=== PATIENT | female | born 2000 | race Caucasian/White ===

== ENCOUNTER 2022-05-13 20:57 | Emergency (ER) | payer MEDICAID ==
[~2022-05-13] VITALS: Ht 170.1 cm; Wt 60.1 kg
[~2022-05-13 20:57] MED LIST: ONDAN4ODT PO
--- NOTE | 2022-05-13 21:36 | ED Cough/URI ---
General Chief Complaint: COVID19 Suspect/Confirmed Stated Complaint: SOB, COUGH, SORE THROAT Nursing Triage Note: PT ARRIVAL TO ER WITH COMPLAINT OF COVID SYMTPOMS SINCE THIS AM. REYES, FEVER, CHILLS, SOA AT REST, AND FATIGUE. SYMPTOMS STARTED THIS MORNING. PT IS COVID VACCINATED X1 WITH THE J&J. Source: patient Exam Limitations: no limitations History of Present Illness Date Seen by Provider: May 13, 2022 Time Seen by Provider: 21:26 Allergies and Home Medications Allergies Coded Allergies: No Known Drug Allergies (Unverified , 05/13/22) Past Sttmfee-Kdmbsq-Pumbpj Hx Patient Social History Tobacco Use?: No Use of E-Cig and/or Vaping dev: No Substance use?: No Alcohol Use?: Yes Alcohol type: Beer, Hard Liquor, Wine Alcohol Frequency: Couple times a week Pt feels they are or have been: No Immunizations Up To Date Influenza Vaccine Up-to-Date: No; Not Current First/Initial COVID19 Vaccinat: 11/12 COVID19 Vaccine Automatic Screwmaker: J&J Physical Exam Vital Signs - First Documented 05/13/22 21:09 Temp 38.3 Pulse 126 Resp 18 B/P (MAP) 104/70 (81) Pulse Ox 97 O2 Delivery Room Air Capillary Refill : Less Than 3 Seconds Height: '" Weight: lbs. oz. kg; 20.00 BMI Method: Progress/Results/Core Measures Suspected Sepsis SIRS Temperature: Pulse: 126 Respiratory Rate: 18 Laboratory Tests 05/13/22 22:02: White Blood Count 14.4H Blood Pressure 104 /70 Mean: 81 Laboratory Tests 05/13/22 22:02: Creatinine 0.87, Platelet Count 191, Total Bilirubin 2.4H Results/Orders Lab Results Laboratory Tests Test 05/13/22 21:15 05/13/22 22:02 Range/Units Influenza Type A (RT-PCR) Not Detected Not Detecte Influenza Type B (RT-PCR) Not Detected Not Detecte SARS-CoV-2 RNA (RT-PCR) Not Detected Not Detecte Group A Streptococcus Screen NEGATIVE NEGATIVE White Blood Count 14.4 H 4.3-11.0 10^3/uL Red Blood Count 4.39 3.80-5.11 10^6/uL Hemoglobin 13.2 11.5-16.0 g/dL Hematocrit 38 35-52 % Mean Corpuscular Volume 86 80-99 fL Mean Corpuscular Hemoglobin 30 25-34 pg Mean Corpuscular Hemoglobin Concent 35 32-36 g/dL Red Cell Distribution Width 11.7 10.0-14.5 % Platelet Count 191 130-400 10^3/uL Mean Platelet Volume 10.1 9.0-12.2 fL Immature Granulocyte % (Auto) 0 % Neutrophils (%) (Auto) 83 H 42-75 % Lymphocytes (%) (Auto) 8 L 12-44 % Monocytes (%) (Auto) 8 0-12 % Eosinophils (%) (Auto) 0 0-10 % Basophils (%) (Auto) 0 0-10 % Neutrophils # (Auto) 12.0 H 1.8-7.8 10^3/uL Lymphocytes # (Auto) 1.2 1.0-4.0 10^3/uL Monocytes # (Auto) 1.2 H 0.0-1.0 10^3/uL Eosinophils # (Auto) 0.0 0.0-0.3 10^3/uL Basophils # (Auto) 0.0 0.0-0.1 10^3/uL Immature Granulocyte # (Auto) 0.1 0.0-0.1 10^3/uL Neutrophils % (Manual) 82 % Lymphocytes % (Manual) 10 % Monocytes % (Manual) 8 % Blood Morphology Comment NORMAL Sodium Level 137 135-145 MMOL/L Potassium Level 3.5 L 3.6-5.0 MMOL/L Chloride Level 103 98-107 MMOL/L Carbon Dioxide Level 21 21-32 MMOL/L Anion Gap 13 5-14 MMOL/L Blood Urea Nitrogen 10 7-18 MG/DL Creatinine 0.87 0.60-1.30 MG/DL Estimat Glomerular Filtration Rate 98 BUN/Creatinine Ratio 11 Glucose Level 103 70-105 MG/DL Calcium Level 9.2 8.5-10.1 MG/DL Corrected Calcium 9.0 8.5-10.1 MG/DL Total Bilirubin 2.4 H 0.1-1.0 MG/DL Aspartate Amino Transf (AST/SGOT) 16 5-34 U/L Alanine Aminotransferase (ALT/SGPT) 12 0-55 U/L Alkaline Phosphatase 57 40-136 U/L Total Protein 7.3 6.4-8.2 GM/DL Albumin 4.3 3.2-4.5 GM/DL Monoscreen NEGATIVE NEGATIVE My Orders Orders - MEENA FRAZIER [employer]ICE PRESIDENT [employer] Urine Bedside (05/13/22 21:02) Ed Iv/Invasive Line Start (05/13/22 21:51) Ketorolac Injection (Toradol Injection) (05/13/22 22:00) Ns Iv 1000 Ml (Sodium Chloride 0.9%) (05/13/22 22:00) Rapid Strep A Screen (05/13/22 22:00) Cbc With Automated Diff (05/13/22 22:37) Comprehensive Metabolic Panel (05/13/22 22:37) Monotest (05/13/22 22:37) Acetaminophen Tablet (Tylenol Tablet) (05/13/22 22:45) Manual Differential (05/13/22 22:02) Saline Nasal [place] ([place] Nasal [place]) (05/13/22 23:00) Medications Given in ED Current Medications Medications Dose Ordered Sig/Zoe Route Start Time Stop Time Status Last Admin Dose Admin Acetaminophen 1,000 mg ONCE ONCE PO 05/13/22 22:45 05/13/22 22:46 DC 05/13/22 22:54 1,000 MG Ketorolac Tromethamine 30 mg ONCE ONCE IVP 05/13/22 22:00 05/13/22 22:01 DC 05/13/22 22:04 30 MG Sodium Chloride 1,000 ml @ 999 mls/hr Q1H ONCE IV 05/13/22 22:00 05/13/22 23:05 DC 05/13/22 22:04 999 MLS/HR Vital Signs/I&O 05/13/22 21:09 Temp 38.3 Pulse 126 Resp 18 B/P (MAP) 104/70 (81) Pulse Ox 97 O2 Delivery Room Air Capillary Refill : Less Than 3 Seconds Blood Pressure Mean: 81 Departure Impression Primary Impression: Acute tonsillitis Disposition: 01 HOME, SELF-CARE Condition: Improved Departure-Patient Inst. Decision time for Depature: 23:08 Patient Instructions: Sore Throat, Adult ED Add. Discharge Instructions: Plan: 1. Gargle with warm salt water 2-3 times per day. 2. Take antibiotics twice a day as directed and complete full course even if you start feeling better. 3. Follow up with your doctor if your symptoms persist despite taking antibiotics. 4. May take Ibuprofen 600mg every 6 hours or 800mg every 8 hours for throat pain. Do not take at this dose for more than a couple days. 5. Return to ER for any new, concerning, or worsening symptoms. All discharge instructions reviewed with patient and/or family. Voiced understanding. Scripts Amoxicillin (Amoxicillin) 500 Mg Capsule 500 MG PO BID for 10 Days, #20 CAP 0 Refills Prov: MEENA FRAZIER VICE PRESIDENT [employer] 05/13/22 MEENA FRAZIER [employer]ICE PRESIDENT [employer] May 13, 2022 21:36
[2022-05-13] MEDS ORDERED: NS IV 1000 ML 1,000 ML IV ONE (22:00)
[2022-05-13] MEDS ORDERED: KETOROLAC 30 MG/ML VIAL IVP ONE (22:00)
[2022-05-13 22:43] LABS: ALBUMIN 4.3 GM/DL (3.2-4.5); BASOPHILS % (AUTO) 0 % (0-10); EOSINOPHILS % (AUTO) 0 % (0-10); HEMATOCRIT 38 % (35-52); HEMOGLOBIN 13.2 g/dL (11.5-16.0); LYMPHOCYTES # (AUTO) 1.2 10^3/uL (1.0-4.0); LYMPHOCYTES % (AUTO) 8 % (12-44); MEAN CORPUSCULAR HEMOGLOBIN 30 pg (25-34); MEAN CORPUSCULAR HGB CONC 35 g/dL (32-36); MEAN CORPUSCULAR VOLUME 86 fL (80-99); MEAN PLATELET VOLUME 10.1 fL (9.0-12.2); MONOCYTES # (AUTO) 1.2 10^3/uL (0.0-1.0); MONOCYTES % (AUTO) 8 % (0-12); NEUTROPHILS % (AUTO) 83 % (42-75); PLATELET COUNT 191 10^3/uL (130-400); WHITE BLOOD COUNT 14.4 10^3/uL (4.3-11.0)
[2022-05-13 22:44] LABS: POTASSIUM 3.5 MMOL/L (3.6-5.0)
[2022-05-13 22:45] LABS: CALCIUM 9.2 MG/DL (8.5-10.1)
[2022-05-13] MEDS ORDERED: ACETAMINOPHEN 500 MG TAB (TYLENOL) PO ONE (22:45)
[2022-05-13 22:46] LABS: TOTAL PROTEIN 7.3 GM/DL (6.4-8.2)
[2022-05-13 22:48] LABS: BILIRUBIN,TOTAL 2.4 MG/DL (0.1-1.0)
[2022-05-13 22:50] LABS: CREATININE SERUM 0.87 MG/DL (0.60-1.30)
[2022-05-13] MEDS ORDERED: SALINE NASAL SPRAY (OCEAN) 45 ML BTL ONE (23:00)
[2022-05-13 23:01] LABS: LYMPHOCYTES % (MANUAL) 10 %; MONOCYTES % (MANUAL) 8 %; NEUTROPHILS % (MANUAL) 82 %; RBC MORPH NORMAL
[2022-05-13] MEDS ORDERED: AMOX500C2 PO (23:12)
[2022-05-13 23:22] VITALS: BP 108/83
== END 2022-05-13 23:29 | disposition home or self-care (01) ==
LOC: ER 21:01
DX: J03.90 Acute tonsillitis, unspecified (principal); Z20.822 Contact with and (suspected) exposure to COVID-19; Z28.311 Partially vaccinated for COVID-19
CPT/HCPCS: 36415; 80053; 85007; 85025; 85027; 86308; 87430; 87636; 96374; 96375

== ENCOUNTER 2022-08-19 12:39 | Emergency (ER) | payer MEDICAID ==
[~2022-08-19] VITALS: Ht 170 cm; Wt 64.2 kg
[~2022-08-19 12:39] MED LIST changes: +AMOX500C2 PO
--- NOTE | 2022-08-19 13:13 | ED EENT ---
History of Present Illness General Chief Complaint: Oral/Throat Problems Stated Complaint: THROAT AND EAR PAIN Nursing Triage Note: PT COMPLAINS OF BEING SICK X1 WEEK WITH SEVERE RIGHT SIDED THROAT AND EAR PAIN. PT STATES THERE IS A POCKET IN HER THROAT THAT IS DRAINING. PT WENT TO [facility]. NEG FOR STREP, COVID, AND FLU ET WAS TOLD TO GO HOME AND TAKE IBUPROFEN. Source: patient Exam Limitations: no limitations History of Present Illness Date Seen by Provider: Aug 19, 2022 Time Seen by Provider: 13:00 Initial Comments 22yo female to the ER with a complaint of throat pain for about a week. Saw a provider at [facility] and was told pharyngitis - rapid strep neg. Taking 800mg Ibuprofen without relief of symptoms. Concerned for possible "tonsil stone" to right tonsil and irriation and soreness. subjective fever 2 days ago. Gargling with warm salt water without relief. No cough/URI symptoms. was told she also has fluid behind her right ear. Not taking any decongestants. No n/v/d. no urinary symptoms. Timing/Duration: gradual, last week Severity: moderate Location: throat Prearrival Treatment: over the counter meds (ibuprofen) Associated Symptoms: No cough; sore throat, other (fever 2 days ago) Allergies and Home Medications Allergies Coded Allergies: No Known Drug Allergies (Unverified , 05/13/22) Patient Home Medication List Home Medication List Reviewed: Yes No Active Prescriptions or Reported Meds Review of Systems Review of Systems Constitutional: see HPI Eyes: No Symptoms Reported Ears: Other (congestion) Nose: no symptoms reported Throat: pain, swelling, other (tonsil stone right - right sided pain) Respiratory: no symptoms reported Cardiovascular: no symptoms reported Gastrointestinal: no symptoms reported Neurological: No Symptoms Reported All Other Systems Reviewed Negative Unless Noted: Yes Past Atnqnpr-Vpcwsi-Ajliny Hx Patient Social History Tobacco Use?: No Substance use?: No Alcohol Use?: Yes Alcohol Frequency: Once in a while Immunizations Up To Date First/Initial COVID19 Vaccinat: UNKNOWN COVID19 Vaccine Pile Driver Operator Helper: SARAHY Physical Exam Vital Signs Vital Signs - First Documented 08/19/22 12:50 Temp 36.9 Pulse 92 Resp 16 B/P (MAP) 127/85 (99) Pulse Ox 99 O2 Delivery Room Air Height, Weight, BMI Height: '" Weight: lbs. oz. kg; 22.00 BMI Method:Stated General Appearance: WD/WN, no apparent distress Eyes: bilateral eye normal inspection, bilateral eye PERRL, bilateral eye EOMI Ears: bilateral ear auricle normal, bilateral ear canal normal, bilateral ear TM dull, bilateral ear other (with effusion) Mouth/Throat: pharynx swelling, pharynx tenderness, tonsillar exudate, other (petechial rash on the palate right greater than left) Neck: full range of motion Cardiovascular: regular rate, rhythm; No no murmur Respiratory: lungs clear, normal breath sounds, no respiratory distress, no accessory muscle use Gastrointestinal: soft Neurologic/Psychiatric: alert, normal mood/affect, oriented x 3 Skin: normal color, warm/dry Progress/Results/Core Measures Results/Orders My Orders Orders - YUDITH VÁZQUEZ MD Rapid Strep A Screen (08/19/22 13:14) Dexamethasone Oral Soln (Ed) (Decadron I (08/19/22 13:17) Vital Signs/I&O 08/19/22 12:50 Temp 36.9 Pulse 92 Resp 16 B/P (MAP) 127/85 (99) Pulse Ox 99 O2 Delivery Room Air Blood Pressure Mean: 99 Progress Progress Note : Time: 13:14 Progress Note Call to [facility] clinic, strep culture prelim negative per nurse at the clinic. Offered the patient 2 choices, retest and treat or just treat - either with 1 shot of penicillin or an oral course. She elected the shot. Also will give a dose of decadron to help with the swelling and pain. She is not sexually active or on control. She does states she has a history of yeast infections with antibiotics - will give a script for diflucan. Patient advised to contine to gargle 2-3 times a day, Counselled on ibuprofen dosing. She could use a water pick to try and dislodge the stone. Return precautions provided; I did let her know the more she "messes with" the area on her tonsil the high the risk of creating an abcess. Departure Impression Primary Impression: Pharyngitis Qualified Codes: J02.9 - Acute pharyngitis, unspecified Disposition: HOME, SELF-CARE Condition: Stable Departure-Patient Inst. Decision time for Depature: 13:24 Referrals: [facility] [place],LOCAL PHYSICIAN (PCP) Primary Care Physician Patient Instructions: Strep Throat ED Add. Discharge Instructions: You need to gargle with warm salt water 3 times a day to decrease inflammation and swelling. You can also use a water pick to try and get the tonsil stone out. Be very careful with this. Ibuprofen 3 pills every 6 hours may be better dosing of medication for pain. Always take ibuprofen with food. Return to the Emergency Department for any worsening pain with high fever, rash, vomiting or any other emergent concerning symptoms. Scripts Fluconazole (Diflucan) 150 Mg Tablet 150 MG PO ONCE, #2 TAB take one pill today or tomorrow and repeat in 7 days Prov: YUDITH VÁZQUEZ MD 08/19/22 YUDITH VÁZQUEZ MD Aug 19, 2022 13:13
[2022-08-19] MEDS ORDERED: FLUC150T PO (13:29)
[2022-08-19] MEDS ORDERED: PEN G BENZ (BICILLIN LA) 1.2 M UN/2 ML SYR IM ONE (13:30)
[2022-08-19 14:00] VITALS: BP 127/85
== END 2022-08-19 14:00 | disposition home or self-care (01) ==
LOC: EDUNIT# 12:39 → ER 12:41
DX: J02.9 Acute pharyngitis, unspecified (principal); Z28.311 Partially vaccinated for COVID-19